=== PATIENT | male | born 1950 | race Caucasian/White ===

== ENCOUNTER 2016-07-09 08:35 | Day surgery (SDC) | payer MEDICARE, BC ==
[2016-07-07 08:25] VITALS: BMI 24.3
[~2016-07-09 08:35] MED LIST: LACTATED RINGERS 1,000 ML IV SCH; LIDOCAINE 1% 20 ML VIAL (10MG/ML) FOR IV START INTRADERMA PRN
[2016-07-09 09:27] VITALS: TEMP 97.6
[2016-07-09] MEDS ORDERED: PROPOFOL 10 MG/ML 20 ML VIAL IV ONE (10:20)
--- NOTE | 2016-07-09 10:48 | P.PCN ---
Date of Procedure: 07/09/16 Procedure(s) Performed: Procedure: Colonoscopy and polypectomy. Preoperative diagnosis: Screening for neoplasia. Postoperative diagnosis: 1. Small polyp distal sigmoid snared but no large polyps or cancer. 2. Sigmoid diverticulosis with no evidence of acute diverticulitis or strictures. Preparation: HalfLytely prep. Sedation: Was provided by anesthesia. Brief clinical history: The patient is a 65-year-old male who is referred for this evaluation for screening for neoplasia. He had a prior exam more than 10 years ago. He has no abdominal complaints at this time for bleeding or anemia. Procedure: With the patient on his left lateral decubitus position and after informed consent and adequate sedation, the perianal area was inspected and it did not show any fissures or fistulas. There were no masses felt on digital rectal examination. The Olympus CFQ 160L video colonoscope was then inserted in the rectum in the usual fashion and advanced to the cecum. The mucosa appeared healthy. There were a few diverticular openings seen in the distal sigmoid but I saw no evidence of acute diverticulitis or strictures. There was a small polyp in the distal sigmoid close to the rectosigmoid junction which was snared and retrieved by suction but there were no large polyps or cancer. I retroflexed endoscope in the rectum before the endoscope was withdrawn. The patient tolerated the procedure well. Plan: The patient was reassured. Discussed dietary measures. With the finding of a polyp today, I am recommending repeating this exam in around 5 years. He will follow up with you as planned.
[2016-07-09 11:11] VITALS: RESP 18
[2016-07-09 11:15] VITALS: BP 127/82; PULSE 55
== END 2016-07-09 11:36 | disposition home or self-care (01) ==
LOC: ORWHC2ENDO 08:35
DX: Z12.11 Encounter for screening for malignant neoplasm of colon (principal); D12.5 Benign neoplasm of sigmoid colon; K57.30 Diverticulosis of large intestine without perforation or abscess without bleeding; K21.9 Gastro-esophageal reflux disease without esophagitis; G47.33 Obstructive sleep apnea (adult) (pediatric); E78.5 Hyperlipidemia, unspecified; E07.9 Disorder of thyroid, unspecified; N40.0 Benign prostatic hyperplasia without lower urinary tract symptoms; Z79.899 Other long term (current) drug therapy
CPT/HCPCS: 88305; 45385; J2704

== ENCOUNTER → 2018-08-15 | Outpatient (CLI) | payer MEDICARE ==
--- NOTE | 2018-08-15 14:45 | MR ---
EXAMINATION TYPE: MR knee RT wo con DATE OF EXAM: 08/15/2018 COMPARISON: Outside x-ray dated 08/03/2018 HISTORY: Pain in right knee TECHNIQUE: Multiplanar, multisequence imaging of the right knee is performed without IV contrast. FINDINGS: MEDIAL MENISCUS: There is grade 3 abnormal signal involving the posterior horn and body compatible wi th a complex tear. LATERAL MENISCUS: There is intrasubstance signal identified with no definite articular extension and most compatible with myxoid degeneration. CRUCIATE LIGAMENTS: The anterior and posterior cruciate ligaments are intact and unremarkable. COLLATERAL LIGAMENTS: The medial collateral ligament and lateral collateral ligament complex are inta ct and unremarkable. EXTENSOR MECHANISM: Increased signal at the level of the quadriceps insertions felt to BE most likely artifactual EFFUSION: No significant suprapatellar joint effusion. POPLITEAL CYST: No sizable popliteal/schroeder cyst. TRICOMPARTMENT SPACES: There is narrowing of the medial compartment and patellofemoral compartment. N o joint effusion. BONE MARROW SIGNAL: Nonspecific 1 cm area of marrow edema involving the anterior distal margin of the central aspect of the femur. IMPRESSION: 1. Findings compatible with complex tear posterior horn medial meniscus. 2. Nonspecific marrow edema involving the distal anterior central femur measuring 1 cm. Correlate for bone contusion. 3. Findings involving posterior horn lateral meniscus most typical of myxoid degeneration. 4. Signal alteration at the insertion of the quadriceps tendon is felt to BE most likely artifactual rather than related to tendinosis correlate clinically.
== END | disposition home or self-care (01) ==
LOC: RADMRIMAIN 11:15
PROVIDERS: ATTEND Orthopaedic Surgery
DX: M23.351 Other meniscus derangements, posterior horn of lateral meniscus, right knee (principal); R60.0 Localized edema

== ENCOUNTER 2018-09-09 09:36 | Day surgery (SDC) | payer MEDICARE ==
[2018-09-07 09:11] VITALS: BMI 24.3
--- NOTE | 2018-09-08 11:29 | HP ---
HISTORY AND PHYSICAL CHIEF COMPLAINT: Right knee pain. HISTORY OF PRESENT ILLNESS: The patient is a 67-year-old retired gentleman who presents with right knee pain worsening over the past several months. He notes medial pain that worsens with stairs and getting up from a seated position. He notes occasional giving way. He has been taking ibuprofen with persistence of the symptoms. PAST MEDICAL HISTORY: Significant for hypercholesterolemia. PAST SURGICAL HISTORY: Significant for left knee arthroscopy. CURRENT MEDICATIONS: 1. Pravastatin. 2. Ibuprofen. 3. Levothyroxine. 4. Levaquin. ALLERGIES: He denies drug allergies. FAMILY HISTORY: Significant for cancer. SOCIAL HISTORY: Significant for previous alcohol abuse. REVIEW OF SYSTEMS: Sixteen-point review of systems otherwise reviewed and is noncontributory. PHYSICAL EXAMINATION: On examination, the patient is approximately 5 feet, 9 inches, 165 pounds of mesomorphic habitus. HEENT exam is nonfocal. Neck is supple. He has painless passive motion of the right hip. Straight leg raise is negative. Active motion right knee -10 to 130 degrees of flexion. She is tender about the medial joint line. Collaterals are stable, Margie's negative, Debora's elicits medial pain. His distal neurovascular exam appears intact in the right lower extremity. MRI report right knee 08/15/2018 shows a posterior medial meniscal tear. IMPRESSION: 1. Right knee internal derangement with symptomatic medial meniscal tear. 2. Right knee moderate medial compartment osteoarthrosis. RECOMMENDATIONS: I talked to the patient at length regarding his condition along with treatment options. At this point, he is quite symptomatic and limited because of pain. After thorough discussion, he opts to proceed with surgery. We will plan to proceed with arthroscopic evaluation with probable partial medial meniscectomy. We will likely perform that as an outpatient procedure. Risks and benefits were discussed at length in layman's terms. MMODL / IJN: [id number] /
[~2018-09-09 09:36] MED LIST changes: +DEXAMETHASONE SOD PHOSPHATE 10 MG/ML 1 ML VIAL IV ONE; -LIDOCAINE 1% 20 ML VIAL (10MG/ML) FOR IV START INTRADERMA PRN; +MIDAZOLAM 2 MG/2 ML VIAL IV PRN; +ONDANSETRON 4 MG/2 ML VIAL IVP ONE; +ceFAZolin IN SWFI 2 GM/20 ML SYRINGE IVP ONE
[2018-09-09] MEDS ORDERED: LIDOCAINE 1% 20 ML VIAL (10MG/ML) FOR IV START INTRADERMA ONE (10:08)
[2018-09-09] MEDS ORDERED: KETOROLAC 30 MG/ML 1 ML VIAL ONE (10:59)
[2018-09-09] MEDS ORDERED: LIDOCAINE 1% INJ 10MG/ML (20 ML MDV) ONE (10:59)
[2018-09-09] MEDS ORDERED: MIDAZOLAM 2 MG/2 ML VIAL ONE (10:59)
[2018-09-09] MEDS ORDERED: fentaNYL (PF) 50 MCG/ML 2 ML AMP ONE (10:59)
[2018-09-09] MEDS ORDERED: PROPOFOL 10 MG/ML 20 ML VIAL IV ONE (10:59)
--- NOTE | 2018-09-09 11:44 | P.OP ---
Date of Procedure: 09/09/18 Preoperative Diagnosis: Right knee internal derangement Postoperative Diagnosis: Right knee posterior medial meniscal tear/reactive synovitis Procedure(s) Performed: Right knee arthroscopic partial medial meniscectomy/partial synovectomy of the medial, lateral, and patellofemoral compartments Anesthesia: JOSE Surgeon: Sage Matthews Estimated Blood Loss (ml): 10 Pathology: none sent Condition: stable Disposition: PACU Indications for Procedure: The patient's a 67-year-old male who presents with progressive right knee pain and mechanical symptoms despite conservative measures. A discussion of the risks and benefits of operative intervention versus continued conservative measures was made with the patient. He opted to proceed with surgery. Operative risks to include infection, neurovascular injury, development of blood clots, possible incomplete resolution of symptoms, possible worsening of symptoms and need for subsequent procedures was discussed. Informed consent was obtained. Operative Findings: As below Description of Procedure: The patient was brought to the operating room, and after induction of general anesthesia examined the right knee. Collaterals were stable, Margie was negative, and posterior drawer was negative. The right lower extremity was prepped and draped in a normal fashion. A superior lateral portal was made through a 3 mm skin incision superior and lateral to the patella. This was used for outflow. A lateral portal was made through a 5 mm vertical skin incision lateral to the patella tendon above the joint line. Diagnostic arthroscopy was performed. On inspection of the medial compartment, a complex tear involving the posterior to middle one third of the medial meniscus was noted in the white- red junction. This was not amenable to repair. This was debrided back to stable base with straight baskets and a motorized shaver. Significant reactive synovitis involving the anterior medial, anterolateral, and patellofemoral articulations were noted. This was debrided with a motorized shaver. On inspection of the notch, the anterior cruciate ligament appeared to be intact. On inspection of the lateral compartment no significant meniscal or cartilage pathology was noted. On inspection of the patellofemoral articulation there were mild degenerative changes. The gutters were clear debris. The knee was then thoroughly irrigated. The portals were closed with Steri-Strips. A sterile dressing was applied in addition to a compression stocking. The patient was awoken from general anesthesia and transferred to recovery room in good condition. Blood loss was estimated at 10 mL. No complications were incurred.
[2018-09-09] MEDS ORDERED: LACTATED RINGERS 1,000 ML IV ONE (11:46)
[2018-09-09 11:52] VITALS: TEMP 98
[2018-09-09] MEDS: HYDROmorphone 0.5 MG/0.5 ML SYRINGE IVP PRN ×4 (11:59→12:30)
[2018-09-09 12:49] VITALS: RESP 18
[2018-09-09 13:38] VITALS: BP 125/74; PULSE 78
== END 2018-09-09 13:53 | disposition home or self-care (01) ==
LOC: OR 09:36
PROVIDERS: ATTEND Orthopaedic Surgery
DX: S83.231A Complex tear of medial meniscus, current injury, right knee, initial encounter (principal); X58.XXXA Exposure to other specified factors, initial encounter; M65.861 Other synovitis and tenosynovitis, right lower leg; M17.11 Unilateral primary osteoarthritis, right knee; E03.9 Hypothyroidism, unspecified; K21.9 Gastro-esophageal reflux disease without esophagitis; E78.00 Pure hypercholesterolemia, unspecified; E78.5 Hyperlipidemia, unspecified; N40.0 Benign prostatic hyperplasia without lower urinary tract symptoms; F10.21 Alcohol dependence, in remission; Z79.899 Other long term (current) drug therapy; Z79.890 Hormone replacement therapy; Z79.1 Long term (current) use of non-steroidal anti-inflammatories (NSAID)
CPT/HCPCS: 29881; J2250; J1100; J2405; J2001; J3010; J1885; J2704; J1170; J0690